=== PATIENT | female | born 1955 | race Caucasian/White ===

== ENCOUNTER 2016-12-04 15:52 | Emergency (ER) | payer OTHER ==
[~2016-12-04] VITALS: Ht 160 cm; Wt 90.7 kg
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
[2016-12-04] MEDS ORDERED: PROAIR HFA8.5 GM INH (16:50)
[2016-12-04] MEDS ORDERED: NAPROXEN375 M2 PO (16:50)
[2016-12-04] MEDS ORDERED: ADVAIR 250-501 EACH INH (16:50)
[2016-12-04] MEDS ORDERED: SERTRALINE HCL50 MG PO (16:50)
[2016-12-04] MEDS ORDERED: CLARITIN10 M1 PO (16:51)
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
[2016-12-04 18:25] VITALS: BP 150/86
== END 2016-12-04 18:57 ==
LOC: ERH 15:52
DX: S16.1XXA Strain of muscle, fascia and tendon at neck level, initial encounter (principal); V49.40XA Driver injured in collision with unspecified motor vehicles in traffic accident, initial encounter